=== PATIENT | female | born 1965 | race Caucasian/White ===

== ENCOUNTER 2023-04-26 15:05 | Emergency (ER) | payer SELFPAY ==
[~2023-04-26] VITALS: Ht 154.9 cm; Wt 60.0 kg
[2023-04-26 15:15] VITALS: O2SAT 100
[2023-04-26] MEDS ORDERED: KETOROLAC 60MG/2ML VIAL IM ONE (16:45)
[2023-04-26] MEDS ORDERED: LIDOCAINE 5% PATCH TOP SCH (16:45)
[2023-04-26] MEDS ORDERED: NAPR-1129 MT (17:34)
[2023-04-26 18:19] VITALS: BP 147/59; PULSE 83; RESP 18; TEMP 98.7
== END 2023-04-26 18:21 | disposition home or self-care (01) ==
LOC: ER 15:05
DX: S20.219A Contusion of unspecified front wall of thorax, initial encounter (principal); I10 Essential (primary) hypertension; E11.9 Type 2 diabetes mellitus without complications; F19.90 Other psychoactive substance use, unspecified, uncomplicated; V98.8XXA Other specified transport accidents, initial encounter; Y93.89 Activity, other specified; Y92.89 Other specified places as the place of occurrence of the external cause; Y99.8 Other external cause status
CPT/HCPCS: 99285; 71250; 93005; 96372; J1885